=== PATIENT | male | born 1990 | race Caucasian/White ===

== ENCOUNTER 2017-11-28 20:29 | Emergency (ER) | payer MEDICAID ==
[~2017-11-28] VITALS: Ht 175.3 cm; Wt 113.4 kg
[2017-11-28] MEDS ORDERED: ALBU2.5V36 INH (20:36)
[2017-11-28] MEDS ORDERED: DULERAPT INH (20:36)
[2017-11-28] MEDS ORDERED: MONT10TA PO (20:36)
[2017-11-28] MEDS ORDERED: ALB18R INH (20:36)
--- NOTE | 2017-11-28 20:55 | ER Report ---
History and Physical Time Seen By MD: 20:47 Hx. of Stated Complaint: PT REPORTS FLU LIKE SYMPTOMS SINCE YESTERDAY. HPI/ROS CHIEF COMPLAINT: flu symptoms HISTORY OF PRESENT ILLNESS: This is a 27 year old male. He has had cough, runny nose, sore throat and shortness of breath. Started yesterday. Fevers on and off. Muscle aches. Asthma with smoking. Wheezing. Wanted to get flu testing and see if needing Tamiflu. Allergies: Coded Allergies: azithromycin (Verified Allergy, Mild, RASH, 11/28/17) Home Meds Active Scripts Methylprednisolone (METHYLPREDNISOLONE) 4 Mg Tab.ds.pk, 4 MG PO DIRECTED, #1 PACK 0 Refills Prov:KIMBERLI STRONG MD 11/28/17 Reported Medications Montelukast Sodium (SINGULAIR) 10 Mg Tablet, 1 TAB PO QDAY, TAB 11/28/17 Albuterol Sulfate 0.083% (ALBUTEROL SULFATE 0.083%) 2.5 Mg/3 Ml Vial.neb, 2.5 MG INH Q4H Y for SHORTNESS OF BREATH, INH 11/28/17 Albuterol Sulfate (VENTOLIN HFA) 18 Gm Inh, 1-2 PUFF INH 3-4XD Y for SHORTNESS OF BREATH, INH 11/28/17 Mometasone/Formoterol (DULERA 200 MCG/5 MCG INHALER) 13 Gm Inh, 13 GM INH DAILY , INH 11/28/17 Reviewed Nurses Notes: Yes Hx Substance Use Disorder: No Hx Alcohol Use: No Constitutional Vital Sign - Last 24 Hours 11/28/17 11/28/17 20:36 22:00 Pulse 105 109 Resp 14 14 B/P (MAP) 147/109 135/101 (112) Pulse Ox 92 92 O2 Delivery Room Air Room Air Physical Exam General Appearance: The patient is alert. No acute distress. Eyes: Pupils are equal, round. No pallor, injection or icterus. ENT: Mucous membranes are moist. Posterior oropharynx with erythema and small post nasal drainage. Nasal mucosa is mildly erythematous. Normal left TM, congenitally absent right TM. Neck: Supple and non tender. Respiratory: Lungs with expiratory wheezing. Cardiovascular: Regular rate and rhythm. No murmurs, gallops or rubs. Normal capillary refill. Gastrointestinal: Abdomen is soft and non tender. Nondistended. Neurological: Alert and oriented x3. No focal neurologic deficits Skin: Warm and dry. No rashes. DIFFERENTIAL DIAGNOSIS: After history and physical exam, differential diagnosis was considered for symptoms suggesting upper respiratory infection, and also concern for asthma exacerbation. Medical Decision Making Data Points Laboratory Hematology Test 11/28/17 20:33 Influenza Virus Type A (PCR) Negative (NEGATIVE) Influenza Virus Type B (PCR) Negative (NEGATIVE) Chemistry Test 11/28/17 20:33 Influenza Virus Type A (PCR) Negative (NEGATIVE) Influenza Virus Type B (PCR) Negative (NEGATIVE) ED Course/Re-evaluation ED Course Influenza negative. Will start on Medrol dose pack for asthma exac. Conservative measures for upper respiratory infection. Decision to Disposition Date: Nov 28, 2017 Decision to Disposition Time: 21:41 Depart Departure Latest Vital Signs Vital Signs Date Time Temp Pulse Resp B/P (MAP) Pulse Ox O2 Delivery O2 Flow Rate FiO2 11/28/17 22:00 109 14 135/101 (112) 92 Room Air Impression: Primary Impression: Viral upper respiratory infection Additional Impression: Asthma with exacerbation Condition: Improved Disposition: HOME OR SELF-CARE New Scripts Methylprednisolone (METHYLPREDNISOLONE) 4 Mg Tab.ds.pk 4 MG PO DIRECTED, #1 PACK 0 Refills Prov: KIMBERLI STRONG MD 11/28/17 Patient Instructions: Moderate and Severe Persistent Asthma (ED), Upper Respiratory Infection (ED) Additional Instructions: Rest and increase fluid intake for the next few days. Over the counter cold medications. Can use Tylenol or Ibuprofen as needed. Start a Medrol dosepack that you will take over the next 6 days. This is a steroid to help decrease inflammation in the lungs. Problem Qualifiers Additional Impression: Asthma with exacerbation Asthma severity: moderate Asthma persistence: persistent Qualified Codes: J45.41 - Moderate persistent asthma with (acute) exacerbation KIMBERLI STRONG MD Nov 28, 2017 20:55
[2017-11-28] MEDS ORDERED: methylPREDNIS 4 MG TAB PO ONE (21:40)
[2017-11-28] MEDS ORDERED: METH4TAB66 PO (21:43)
[2017-11-28 22:00] VITALS: BP 135/101
== END 2017-11-28 22:02 | disposition home or self-care (01) ==
LOC: ER 20:41
DX: J45.41 Moderate persistent asthma with (acute) exacerbation (principal); J06.9 Acute upper respiratory infection, unspecified
CPT/HCPCS: 87502; 99282; J7509